=== PATIENT | female | born 1965 | race African-American/Black ===

== ENCOUNTER 2018-03-14 12:06 | Inpatient (IN) | payer MEDICARE, MEDICAID ==
[~2018-03-14] VITALS: Ht 162.6 cm; Wt 170.1 kg
[~2018-03-14 12:06] MED LIST: DOCU-150 PO; FERR-43 PO; TRIA1TAB5 PO
[2018-03-14 13:46] LABS: HEMATOCRIT. 24.1 % (36.0-48.0); MEAN CORPUSCULAR HEMOGLOBIN 16.3 pg (28.0-32.0); MEAN CORPUSCULAR VOLUME 60.7 fL (81.0-99.0); MEAN PLATELET VOLUME 8.2 fl (7.4-10.4); PLATELET 224 x1000/uL (130-400); RED BLOOD CELL COUNT 3.97 mill/uL (4.2-5.4); RED CELL DISTRIBUTION WIDTH 22.5 % (11.6-14.6)
[2018-03-14 13:51] LABS: CHLORIDE 106 mEq/L (98-107)
[2018-03-14 13:53] LABS: INR 1.1; PARTIAL THROMBOPLASTIN TIME 31.1 sec (23.4-31.0); PROTHROMBIN TIME 10.9 sec (9.1-11.1)
[2018-03-14 13:56] LABS: HEMOGLOBIN. 6.5 g/dL (12.0-16.0); TOTAL IRON BINDING CAPACITY 311 ug/dL (250-450)
[2018-03-14 14:27] LABS: PLATELET ESTIMATE NORMAL
[2018-03-15] VITALS (9 sets, daily range): BP systolic 111–129; BP diastolic 48–61
[2018-03-15] MEDS ORDERED: ACETAMINOPHEN 325MG TABLET PO PRN (09:00)
[2018-03-15] MEDS ORDERED: ONDANSETRON HCL 4MG/2ML INJ IV PRN (09:00)
[2018-03-15 09:41] LABS: CHLORIDE 107 mEq/L (98-107)
[2018-03-15 09:43] LABS: BASOPHILS % 0.3 % (0.0-2.0); EOSINOPHILS % 0.5 % (0.0-5.0); HEMATOCRIT. 24.8 % (36.0-48.0); LYMPHOCYTES % 23.6 % (20.0-50.0); MEAN CORPUSCULAR HEMOGLOBIN 17.5 pg (28.0-32.0); MEAN CORPUSCULAR VOLUME 62.7 fL (81.0-99.0); NEUTROPHILS % 67.6 % (40.0-76.0); PLATELET 192 x1000/uL (130-400); RED BLOOD CELL COUNT 3.95 mill/uL (4.2-5.4); RED CELL DISTRIBUTION WIDTH 24.3 % (11.6-14.6)
[2018-03-15 10:08] LABS: HEMOGLOBIN. 6.9 g/dL (12.0-16.0)
[2018-03-15] MEDS: FERROUS SULFATE 325MG TABLET PO SCH ×2 (12:01→18:06)
[2018-03-15] MEDS: DOCUSATE SODIUM 100MG CAPSULE PO SCH ×2 (12:01→18:06)
[2018-03-15] MEDS ORDERED: DEXTROSE 50% WATER 50ML SYRINGE IV PRN (15:15)
[2018-03-15] MEDS: INSULIN LISPRO 100 UNITS/ML SUBCUT SCH ×2 (18:10→21:37)
[2018-03-15] MEDS: BLOOD SUGAR DIAGNOSTIC STRIP TEST SCH (21:32)
[2018-03-15 23:12] LABS: HEMATOCRIT 25.4 % (36.0-48.0); HEMOGLOBIN 7.3 g/dL (12.0-16.0)
[2018-03-16] VITALS (9 sets, daily range): BP systolic 113–127; BP diastolic 52–64
[2018-03-16] MEDS: BLOOD SUGAR DIAGNOSTIC STRIP TEST SCH ×4 (07:12→20:40)
[2018-03-16 07:41] LABS: BASOPHILS % 0.4 % (0.0-2.0); EOSINOPHILS % 0.8 % (0.0-5.0); HEMATOCRIT. 25.1 % (36.0-48.0); HEMOGLOBIN. 7.2 g/dL (12.0-16.0); LYMPHOCYTES % 30.4 % (20.0-50.0); MEAN CORPUSCULAR HEMOGLOBIN 18.3 pg (28.0-32.0); MEAN CORPUSCULAR VOLUME 63.8 fL (81.0-99.0); MEAN PLATELET VOLUME 8.2 fl (7.4-10.4); MONOCYTES % 7.2 % (2.0-8.0); NEUTROPHILS % 61.2 % (40.0-76.0); PLATELET 164 x1000/uL (130-400); RED BLOOD CELL COUNT 3.94 mill/uL (4.2-5.4); RED CELL DISTRIBUTION WIDTH 25.6 % (11.6-14.6)
[2018-03-16] MEDS: DOCUSATE SODIUM 100MG CAPSULE PO SCH ×2 (08:09→18:01)
[2018-03-16] MEDS: FERROUS SULFATE 325MG TABLET PO SCH ×3 (08:09→18:01)
[2018-03-16] MEDS: INSULIN LISPRO 100 UNITS/ML SUBCUT SCH ×3 (08:18→18:03)
[2018-03-16 09:48] LABS: CHLORIDE 109 mEq/L (98-107)
[2018-03-16 19:57] LABS: HEMATOCRIT 29.6 % (36.0-48.0); HEMOGLOBIN 8.6 g/dL (12.0-16.0)
== END 2018-03-16 23:25 | disposition home or self-care (01) | DRG 760 ==
LOC: ER 12:06 → 6WST 17:57 → UNDOADMIN 03-15 00:25 → ENRESERV 03-15 08:49
PROVIDERS: ADMIT Internal Medicine; ATTEND Internal Medicine
PROC: 30233N1 Transfusion of Nonautologous Red Blood Cells into Peripheral Vein, Percutaneous Approach (ICD-10-PCS; principal; 2018-03-14)
DX: D25.9 Leiomyoma of uterus, unspecified (principal); E44.0 Moderate protein-calorie malnutrition; Z68.44 Body mass index [BMI] 60.0-69.9, adult; D64.9 Anemia, unspecified; N93.9 Abnormal uterine and vaginal bleeding, unspecified; E66.01 Morbid (severe) obesity due to excess calories; E11.9 Type 2 diabetes mellitus without complications; I10 Essential (primary) hypertension; Z88.6 Allergy status to analgesic agent; Z79.899 Other long term (current) drug therapy; Z71.3 Dietary counseling and surveillance
CPT/HCPCS: 36415; 71045; 80048; 82962; 83036; 83540; 83550; 83880; 84484; 85014; 85018; 85044; 86850; 86870; 86900; 86920; 93005; 97162; 99285; J1815; J7040; J7050; P9016